=== PATIENT | female | born 1955 | race African-American/Black ===

== ENCOUNTER 2019-08-28 13:53 | Emergency (ER) | payer OTHER, MEDICARE ==
[~2019-08-28] VITALS: Ht 165.1 cm; Wt 95.0 kg
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
[2019-08-28] MEDS ORDERED: KETOROLAC 30 MG/1 ML ONE (15:00)
[2019-08-28] MEDS ORDERED: METHOCARBAMOL 500 MG TABLET PO ONE (15:00)
[2019-08-28] MEDS ORDERED: KETOROLAC 30 MG/1 ML IM ONE (15:00)
[2019-08-28] MEDS ORDERED: METHOCARBAMOL 500 MG TABLET ONE (15:03)
--- NOTE | 2019-08-28 15:37 | NUR ---
PT MEDICATED ORDERED. UPDATED ON POC INCLUDING PENDING TEST RESULTS AND CHART REVIEW BY ERP.
--- NOTE | 2019-08-28 17:15 | NUR ---
PT CURRENTLY IN RADIOLOGY
[2019-08-28 17:47] VITALS: BP 151/78
--- NOTE | 2019-08-28 17:48 | NUR ---
PT RESTING QUIETLY AT THIS TIME, AWARE WAITING FOR FINAL TEST RESULTS AND CHART REVIEW BY ERP
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
== END 2019-08-28 18:39 | disposition home or self-care (01) ==
LOC: ED 16:34
DX: S16.1XXA Strain of muscle, fascia and tendon at neck level, initial encounter (principal); S20.212A Contusion of left front wall of thorax, initial encounter; S20.211A Contusion of right front wall of thorax, initial encounter; S80.02XA Contusion of left knee, initial encounter; S60.222A Contusion of left hand, initial encounter; I10 Essential (primary) hypertension; V49.49XA Driver injured in collision with other motor vehicles in traffic accident, initial encounter; Y93.89 Activity, other specified; Y92.89 Other specified places as the place of occurrence of the external cause; Y99.8 Other external cause status
CPT/HCPCS: 71111; 71250; 73130; 73564; 96372; 99284; J1885

== ENCOUNTER → 2019-09-06 | Outpatient (CLI) | payer OTHER, MEDICARE | END | disposition home or self-care (01) | LOC: CFH 11:56 | PROVIDERS: ATTEND Chiropractor | DX: S13.8XXA Sprain of joints and ligaments of other parts of neck, initial encounter (principal); S23.3XXA Sprain of ligaments of thoracic spine, initial encounter; S33.8XXA Sprain of other parts of lumbar spine and pelvis, initial encounter; S33.5XXA Sprain of ligaments of lumbar spine, initial encounter; S43.402A Unspecified sprain of left shoulder joint, initial encounter; M50.322 Other cervical disc degeneration at C5-C6 level; M47.814 Spondylosis without myelopathy or radiculopathy, thoracic region; Z90.49 Acquired absence of other specified parts of digestive tract; V89.2XXA Person injured in unspecified motor-vehicle accident, traffic, initial encounter; Y93.89 Activity, other specified; Y92.89 Other specified places as the place of occurrence of the external cause; Y99.8 Other external cause status | CPT/HCPCS: 72052; 72072; 72100; 72170 ==

== ENCOUNTER → 2020-04-28 | Outpatient (CLI) | payer MEDICARE, OTHER | END | disposition home or self-care (01) | LOC: CARD 12:43 | PROVIDERS: ATTEND Nurse Practitioner Family | DX: R94.01 Abnormal electroencephalogram [EEG] (principal) | CPT/HCPCS: 95819 ==